=== PATIENT | male | born 1985 | race Caucasian/White ===

== ENCOUNTER → 2022-01-16 | Day surgery (SDC) | payer BC ==
[~2022-01-16] MED LIST: LIDOCAINE 1% MPF 5 ML VIAL ONE; Ringers Lactate 1,000 ML IV ONE; propofoL 200 MG/20 ML VIAL IV ONE
[2022-01-16 10:17] VITALS: TEMP 98.2
[2022-01-16 10:19] VITALS: BP 130/82; O2SAT 97
--- NOTE | 2022-01-16 20:05 | OP ---
Surgeon: Adam Valerio MD Procedure Performed: Esophagogastroduodenoscopy. Indication For Procedure: Epigastric pain, dyspepsia, bloating. Plan For Anesthesia: Monitored anesthesia care. Complexity: High due to the patient's comorbidities. Technique: After obtaining informed consent from the patient and explaining risks and complications, which include, but are not limited to bleeding, infection, perforation, and anesthesia complication, the patient was placed in the left lateral position and sedation was given. From then on, the scope was advanced through the mouth and carefully guided up to the second portion of the duodenum. After completion of examination, scope and equipment were withdrawn and procedure terminated in a safe man ner. Findings: Esophagus: No gross lesion seen in the proximal and mid esophagus. In the distal esophag us at the GE junction, there was evidence of LA grade A esophagitis. Stomach: Mild patchy erythema seen in the body and antrum. Biopsies taken. A few diminutive benign -appearing polyp seen in the body. Biopsies taken. Duodenum: The bulb and second portion appeared normal. Complications: None. Tolerance To Anesthesia: Excellent. Estimated Blood Loos: Minimal. Postoperative Diagnoses: Gastritis, gastric polyps. Plan: 1.Await pathology results. 2.Follow up in the GI clinic in 2 weeks. Oral PPI once a day. Abdominal ultrasound to rule out cho lelithiasis if has not been done. US/MODL Voice ID: [id number] Report ID: [id number]
== END ==
LOC: OR 07:48
PROVIDERS: ATTEND Internal Medicine Gastroenterology
PROC: 0DB78ZX Excision of Stomach, Pylorus, Via Natural or Artificial Opening Endoscopic, Diagnostic (ICD-10-PCS; 2022-01-16)
PROC: 0DB68ZX Excision of Stomach, Via Natural or Artificial Opening Endoscopic, Diagnostic (ICD-10-PCS; principal; 2022-01-16 09:00)
DX: K29.50 Unspecified chronic gastritis without bleeding (principal); K22.82 Esophagogastric junction polyp; R10.13 Epigastric pain; R14.0 Abdominal distension (gaseous); R11.0 Nausea; R12 Heartburn; E66.9 Obesity, unspecified; R10.9 Unspecified abdominal pain; Z20.822 Contact with and (suspected) exposure to COVID-19
CPT/HCPCS: 88312; 88305; 43239; U0002; J2704; J7120

== ENCOUNTER 2024-10-10 21:13 | Emergency (ER) | payer BC ==
[2024-10-10] MEDS ORDERED: NA CHLORIDE 0.9% 1,000 ML ONE (22:06)
[2024-10-10 22:09] LABS: Absolute Eosinophils 0.2 K/uL (0-0.5); Absolute Lymphocytes (CBC) 2.4 K/uL (0.7-4.9); Absolute Monocytes 0.8 K/uL (0.1-1.3); Basophils % 0.5 % (0-1.3); Eosinophils % 1.7 % (0-4.4); Hematocrit 44.1 % (39.6-49.0); Hemoglobin 15.7 g/dL (13.6-17.9); Lymphocytes % 25.4 % (15.3-44.8); MCH 31.2 pg (27.0-35.0); MCHC 35.6 g/dL (32.0-36.0); MCV 87.5 fL (80-100); MPV 8.3 fL (7.6-11.3); Monocytes % 8.3 % (3.3-12.3); Neutrophils % 64.1 % (41.7-73.7); Platelets 227 thou/uL (152-406); RBC Red Blood Cell Count 5.04 M/uL (4.33-5.43); Red Cell Distribution Width 13.1 % (12.1-15.2)
--- NOTE | 2024-10-10 22:12 | RAD REPORT ---
EXAMINATION: Head Brain Wo Cont CLINICAL INDICATION: Male, 39 years old.HEADACHE TECHNIQUE: Axial CT images from the skull base to the vertex without intravenous contrast. Coronal an d sagittal reformatted images were created from the data set. One or more of the following dose reduction techniques were used: Automated exposure control, adjustment of the mA and/or kV according to patient size, and/or iterative reconstruction. Unless otherwise specified, incidental findings do not require dedicated imaging follow-up. [id number]. COMPARISON: 03/22/2015 FINDINGS: INTRACRANIAL: No acute intracranial hemorrhage. No hydrocephalus. No mass effect or midline shift. No significant white matter disease. VASCULATURE: No visualized abnormalities in the arteries or dural venous sinuses. SCALP/SKULL: No calvarial fracture identified. No acute soft tissue abnormality. SINUSES: The visualized paranasal sinuses are mostly clear. No significant mastoid fluid. IMPRESSION: No acute intracranial abnormality.
--- NOTE | 2024-10-10 22:12 | RAD REPORT ---
EXAM: Chest Single View HISTORY: 39 years Male CONGESTION COMPARISON: 03/06/2017 FINDINGS: LUNGS/PLEURA: The lungs are clear. No pleural effusions or pneumothorax. No pulmonary edema. CARDIAC/MEDIASTINUM: The cardiac silhouette is within normal limits. UPPER ABDOMEN: No significant abnormality. BONES: No acute abnormality. LINES/TUBES/OTHER: N/A IMPRESSION: No evidence of acute cardiopulmonary disease.
[2024-10-10 22:26] LABS: Albumin 3.8 g/dL (3.4-5.0); Anion Gap 7.5 mEq/L (5.0-15.0); Bilirubin Direct 0.2 mg/dL (0-0.2); Bilirubin Indirect, Calculated 0.8 mg/dL (0.2-0.8); Globulin 3.9 g/dL (2.3-3.5); Magnesium 2.1 mg/dL (1.6-2.4); Potassium 3.5 mEq/L (3.5-5.1); Protein, Total 7.7 g/dL (6.4-8.2); Troponin High Sensitivity 5.3 pg/mL (<58.9)
[2024-10-10 22:29] LABS: Thyroid Stimulating Hormone 3.75 uIU/mL (0.358-3.740)
[2024-10-10 22:30] LABS: Influenza A Ag Negative; Influenza B Ag Negative; SARS-CoV-2 Antigen Rapid Res Negative (Negative)
--- NOTE | 2024-10-10 22:48 | EDPHYS ---
Physician Documentation [facility] Name: Gelacio Golden Age: 39 yrs Sex: Male : 1985 Arrival Date: 10/10/2024 Time: 21:13 Bed 19 Private MD: ED Physician Nikolas Evans HPI: 10/10 21:37 This 39 yrs old Male presents to ER via Ambulatory with complaints of ABNORMAL EKG FROM sp3 URGENT CARE, Chest Pain. 21:37 39-year-old male with no significant past medical history presents with vague symptoms sp3 of palpitations, chest pain, headache, confusion and bodyaches. Patient was initially seen at urgent care and was sent over to the ER for further evaluation. He denies any fever, neck pain, shortness of breath, back pain, abdominal pain, nausea, vomiting, diarrhea, rash, bleeding, known sick contacts, travel history, prolonged immobilization, or any other signs or symptoms on ROS at this time.. Historical: - Allergies: 21:16 No Known Allergies; ha1 - Home Meds: 21:16 Metformin Oral [Active]; ha1 - PMHx: 21:16 Hyperlipidemia; Hypertension; Diabetes mellitus; Anxiety; ha1 - Immunization history:: Adult Immunizations up to date. - Infectious Disease History:: Denies. - Social history:: Smoking status: Patient denies any tobacco usage or history of. ROS: 21:38 Eyes: Negative for injury, pain, redness, and discharge, Neck: Negative for injury, sp3 pain, and swelling, Respiratory: Negative for shortness of breath, cough, wheezing, and pleuritic chest pain, Abdomen/GI: Negative for abdominal pain, nausea, vomiting, diarrhea, and constipation, Back: Negative for injury and pain, MS/Extremity: Negative for injury and deformity, Skin: Negative for injury, rash, and discoloration, Neuro: Negative for headache, weakness, numbness, tingling, and seizure, Psych: Negative for depression, anxiety, suicide ideation, homicidal ideation, and hallucinations, Allergy/Immunology: Negative for hives, rash, and allergies, Endocrine: Negative for neck swelling, polydipsia, polyuria, polyphagia, and marked weight changes, Hematologic/Lymphatic: Negative for swollen nodes, abnormal bleeding, and unusual bruising, 21:38 All other systems are negative, Exam: 21:38 Constitutional: This is a well developed, well nourished patient who is awake, alert, sp3 and in no acute distress. Head/Face: Normocephalic, atraumatic. Eyes: Pupils equal round and reactive to light, extra-ocular motions intact. Lids and lashes normal. Conjunctiva and sclera are non-icteric and not injected. Cornea within normal limits. Periorbital areas with no swelling, redness, or edema. ENT: Nares patent. No nasal discharge, no septal abnormalities noted. External auditory canals are clear. Oropharynx with no redness, swelling, or masses, exudates, or evidence of obstruction, uvula midline. Mucous membranes moist. Neck: Trachea midline, no thyromegaly or masses palpated, and no cervical lymphadenopathy. Supple, full range of motion without nuchal rigidity, or vertebral point tenderness. No Meningismus. Chest/axilla: Normal chest wall appearance and motion. Nontender with no deformity. No lesions are appreciated. Respiratory: Lungs have equal breath sounds bilaterally, clear to auscultation and percussion. No rales, rhonchi or wheezes noted. No increased work of breathing, no retractions or nasal flaring. Abdomen/GI: Soft, non-tender, with normal bowel sounds. No distension or tympany. No guarding or rebound. No evidence of tenderness throughout. Back: No spinal tenderness. No costovertebral tenderness. Full range of motion. Skin: Warm, dry with normal turgor. Normal color with no rashes, no lesions, and no evidence of cellulitis. MS/ Extremity: Pulses equal, no cyanosis. Neurovascular intact. Full, normal range of motion. Neuro: Awake and alert, GCS 15, oriented to person, place, time, and situation. Cranial nerves II-XII grossly intact. Motor strength 5/5 in all extremities. Sensory grossly intact. Cerebellar exam normal. Normal gait. 21:38 Cardiovascular: Tachycardia, 21:38 ECG was reviewed by the Attending Physician. EKG demonstrates sinus tachycardia at 110 bpm with normal was, normal QRS, normal axis, and normal ST/T-segment's without evidence of acute ischemia. 21:38 Psych: Patient appears anxious. sp3 Vital Signs: 21:16 BP 171 / 99; Pulse 109; Resp 19; Temp 99.4(O); Pulse Ox 100% on R/A; Weight 131.54 kg; ha1 Height 5 ft. 10 in. ; 23:04 BP 154 / 83; Pulse 100; Resp 16 S; Temp 97.2(T); Pulse Ox 100% on R/A; ha1 21:16 Body Mass Index 41.61 (131.54 kg, 177.8 cm) ha1 MDM: 21:17 Medical Screening Exam initiated sp3 21:39 Data reviewed: vital signs, nurses notes, old medical records, lab test result(s), EKG, sp3 radiologic studies. ED course: 39-year-old male with vague symptoms of palpitations, chest pain, headache and general fatigue. Broad differential diagnosis exist including viral illness, COVID-19, influenza, acute coronary syndrome, other intracranial pathology, idiopathic headache, migraine headache with aura, electrolyte disturbance, thyroid abnormality, among others. Workup include CT scan of the head, chest x-ray, EKG, general labs including TSH, D-dimer troponin. Anxiety is also another possibility. If workup negative we will reevaluate vital signs and determine disposition with probable discharge as long as symptoms are improved.. 22:47 ED course: Full workup negative. TSH borderline high. Will have patient follow-up with sp3 PCP. I believe anxiety is a contributing factor. Heart rate now in the 90s. No further intervention in the ED indicated.. 10/10 21:36 Order name: Basic Metabolic Panel; Complete Time: 22:46 sp3 10/10 21:36 Order name: CBC with Diff; Complete Time: 22:26 3 10/10 21:36 Order name: LFT's; Complete Time: 22:46 sp3 10/10 21:36 Order name: Magnesium; Complete Time: 22:46 sp3 10/10 21:36 Order name: Troponin HS; Complete Time: 22:46 sp3 10/10 21:36 Order name: TSH; Complete Time: 22:46 sp3 10/10 21:36 Order name: D-Dimer; Complete Time: 22:26 sp3 10/10 21:37 Order name: COVID-19 Ag + Flu A+B Ag; Complete Time: 22:46 sp3 10/10 22:32 Order name: T4 Free; Complete Time: 22:46 EDMS 10/10 21:36 Order name: XRAY Chest (1 view); Complete Time: 22:26 sp3 10/10 21:36 Order name: CT Head Brain wo Cont; Complete Time: 22:26 sp3 10/10 21:36 Order name: EKG; Complete Time: 21:37 sp3 10/10 21:36 Order name: Cardiac monitoring; Complete Time: 22:14 sp3 10/10 21:36 Order name: EKG - Nurse/Tech; Complete Time: 22:14 sp3 10/10 21:36 Order name: IV Saline Lock; Complete Time: 22:02 sp3 10/10 21:36 Order name: Labs collected and sent; Complete Time: 22:02 sp3 10/10 21:36 Order name: O2 Sat Monitoring; Complete Time: 22:14 sp3 Administered Medications: 22:34 Drug: NS 0.9% IV 1000 ml IV at 1 bolus Per protocol; to be given as a bolus over 60 ay minutes Route: IV; Rate: 1 bolus; Site: right antecubital; 23:05 Follow up: IV Status: Completed infusion; IV Intake: 800ml vc1 Disposition Summary: 10/10/24 22:47 Discharge Ordered Notes: Location: Home sp3 Condition: Stable sp3 Diagnosis - Anxiety sp3 Followup: sp3 - With: Private Physician - When: Upon discharge from the Emergency Department - Reason: Continuance of care Discharge Instructions: - Discharge Summary Sheet sp3 - Hypothyroidism sp3 - Managing Anxiety, Adult sp3 Forms: - Medication Reconciliation Form sp3 - Antibiotic Education sp3 - Prescription Opioid Use sp3 - Patient Portal Instructions sp3 - Leadership Thank You Letter sp3 Signatures: Dispatcher [employer] EDCA Nikolas Evans MD MD sp3 Delfina Pimentel RN RN Bruno Jackson RN Minnie Leger RN vc1 Corrections: (The following items were deleted from the chart) 21:37 21:37 Head Brain Wo Cont+CT.RAD.BRZ ordered. EDCA EDMS 21:37 21:37 D-DIMER+COAG.LAB.BRZ ordered. [facility] EDMS 21:38 21:37 39-year-old male with no significant past medical history presents with vague sp3 symptoms of palpitations, chest pain, headache, confusion and bodyaches.. sp3
--- NOTE | 2024-10-10 22:48 | ER ---
Nurse's Notes [facility] Name: Gelacio Golden Age: 39 yrs Sex: Male : 1985 Arrival Date: 10/10/2024 Time: 21:13 Bed 19 Private MD: Diagnosis: Anxiety Presentation: 10/10 21:16 Chief complaint: Patient states: abnormal EKG at urgent care. Chest palpitations, ha1 Dizziness, nausea, and light headache for the past two days. 21:16 Coronavirus screen: Client denies travel out of the [place] in the last 14 days. Ebola ha1 Screen: No symptoms or risks identified at this time. Initial Sepsis Screen: Does the patient meet any 2 criteria? No. Patient's initial sepsis screen is negative. Does the patient have a suspected source of infection? No. Patient's initial sepsis screen is negative. Risk Assessment: Do you want to hurt yourself or someone else? Patient reports no desire to harm self or others. Onset of symptoms was October 10, 2024. 21:16 Method Of Arrival: Ambulatory ha1 21:16 Acuity: CHLOE 2 ha1 Triage Assessment: 21:16 General: Appears comfortable, Behavior is calm, cooperative. Neuro: Level of ha1 Consciousness is awake, alert, obeys commands, Oriented to person, place, time, situation. Cardiovascular: Reports palpitations, Heart tones S1 S2 present Capillary refill < 3 seconds Rhythm is sinus tachycardia. Respiratory: Airway is patent Respiratory effort is even, unlabored, Respiratory pattern is regular, symmetrical. GI: Reports nausea. 21:16 Pain: Denies pain. : No signs and/or symptoms were reported regarding the ha1 genitourinary system. Derm: Skin is pink, warm \T\ dry. Musculoskeletal: Circulation, motion, and sensation intact. Range of motion: intact in all extremities. Historical: - Allergies: 21:16 No Known Allergies; ha1 - Home Meds: 21:16 Metformin Oral [Active]; ha1 - PMHx: 21:16 Hyperlipidemia; Hypertension; Diabetes mellitus; Anxiety; ha1 - Immunization history:: Adult Immunizations up to date. - Infectious Disease History:: Denies. - Social history:: Smoking status: Patient denies any tobacco usage or history of. Screenin:15 [facility] ED Fall Risk Assessment (Adult) History of falling in the last 3 months, ha1 including since admission No falls in past 3 months (0 pts) Confusion or Disorientation No (0 pts) Intoxicated or Sedated No (0 pts) Impaired Gait No (0 pts) Mobility Assist Device Used No (0 pt) Altered Elimination No (0 pt) Score/Fall Risk Level 0 - 2 = Low Risk Oriented to surroundings, Maintained a safe environment, Educated pt \T\ family on fall prevention, incl call for assistance when getting out of bed, Hourly rounding (assess needs \T\ fall precautionary measures) done. Abuse screen: Denies threats or abuse. Denies injuries from another. Nutritional screening: No deficits noted. Tuberculosis screening: No symptoms or risk factors identified. Assessment: 21:16 Pain: Pain began 2-3 days ago. ha1 21:16 Reassessment: SEE TRIAGE ASSESSMENT. ha1 23:03 Reassessment: Patient and/or family updated on plan of care and expected duration. Pain ha1 level reassessed. Patient is alert, oriented x 3, equal unlabored respirations, skin warm/dry/pink. Patient denies pain at this time. Patient states feeling better. Patient states symptoms have improved. Vital Signs: 21:16 BP 171 / 99; Pulse 109; Resp 19; Temp 99.4(O); Pulse Ox 100% on R/A; Weight 131.54 kg; ha1 Height 5 ft. 10 in. ; 23:04 BP 154 / 83; Pulse 100; Resp 16 S; Temp 97.2(T); Pulse Ox 100% on R/A; ha1 21:16 Body Mass Index 41.61 (131.54 kg, 177.8 cm) 1 ED Course: 21:15 Patient arrived in ED. [id number] 21:16 Nikolas Evans MD is Attending Physician. sp3 21:16 EKG completed in triage. Results shown to MD. ha1 21:16 Patient has correct armband on for positive identification. Placed in gown. Bed in low ha1 position. Call light in reach. Side rails up X 1. 21:16 Provided Education on: PLAN OF CARE . Client placed on continuous cardiac and pulse ha1 oximetry monitoring. NIBP monitoring applied. leather seasoner on. 21:16 Arm band placed on right wrist. ha1 21:35 Triage completed. ha1 21:37 Bruno Jamil, RN is Primary Nurse. ay 21:51 Inserted saline lock: 20 gauge in right forearm, using aseptic technique. Blood sa1 collected. Flushed with 10 mL NS. 21:54 Initial lab(s) drawn, by me, sent to lab. COVID swab sent to lab. Flu and/or RSV swab sa1 sent to lab. 22:01 CT Head Brain wo Cont In Process Unspecified. EDMS 22:02 D-Dimer Sent. sa1 22:02 Basic Metabolic Panel Sent. sa1 22:02 CBC with Diff Sent. sa1 22:02 LFT's Sent. sa1 22:02 Magnesium Sent. sa1 22:02 Troponin HS Sent. sa1 22:08 XRAY Chest (1 view) In Process Unspecified. EDMS 23:04 No provider procedures requiring assistance completed. IV discontinued, intact, ha1 bleeding controlled, No redness/swelling at site. Pressure dressing applied. Patient maintains SpO2 saturation greater than 95% on room air. Administered Medications: 22:34 Drug: NS 0.9% IV 1000 ml IV at 1 bolus Per protocol; to be given as a bolus over 60 ay minutes Route: IV; Rate: 1 bolus; Site: right antecubital; 23:05 Follow up: IV Status: Completed infusion; IV Intake: 800ml vc1 Medication: 22:15 VIS not applicable for this client. ha1 Intake: 23:05 IV: 800ml; Total: 800ml. vc1 Outcome: 22:47 Discharge ordered by . sp3 23:04 Discharged to home ambulatory, with family, ha1 23:04 Condition: stable 23:04 Discharge instructions given to patient, Instructed on discharge instructions, follow up and referral plans. Demonstrated understanding of instructions, follow-up care, 23:07 Patient left the ED. ha1 Signatures: Dispatcher [employer] EDMS Nikolas Evans MD MD sp3 Antonella Lackey jj6 Minnie Mclean RN RN 1 Delfina Pimentel RN RN ha1 Sultan Nicholas sa1 Bruno Jamil RN RN ay Corrections: (The following items were deleted from the chart) 23:04 23:03 Reassessment: Patient and/or family updated on plan of care and expected ha1 duration. Pain level reassessed. Patient is alert, oriented x 3, equal unlabored respirations, skin warm/dry/pink. Patient states feeling better. Patient states symptoms have improved. ha1 23:07 21:16 Cardiovascular: Reports palpitations, Capillary refill < 3 seconds Rhythm is ha1 sinus tachycardia ha1
[2024-10-10 23:24] VITALS: O2SAT 100
[2024-10-10 23:27] VITALS: BP 154/83; TEMP 97.2
--- NOTE | 2024-10-12 12:08 | EKG ---
Test Date: 2024-10-10 Test Time: 21:26:51 Business Office Representative: ROXANNE MEASUREMENT RESULTS: Intervals: Rate: 110 WA: 136 QRSD: 88 QT: 340 QTc: 460 [place]: P: 44 WA: 136 QRS: 22 T: 18 INTERPRETIVE STATEMENTS: Sinus tachycardia Otherwise normal ECG Compared to ECG 03/06/2017 09:12:19 Sinus rhythm no longer present Electronically Signed On 10-12-24 12:03:44 CHECK GRADER by Rigoberto Godinez
== END 2024-10-10 23:07 | disposition home or self-care (01) ==
LOC: ER 21:13
DX: F41.9 Anxiety disorder, unspecified (principal); E11.9 Type 2 diabetes mellitus without complications; I10 Essential (primary) hypertension; Z11.52 Encounter for screening for COVID-19
CPT/HCPCS: 85025; 80048; 36415; 83735; 85379; 80076; 84443; 84484; 84439; 70450; 71045; 96360; 99285; 87428; J7030; 93005